=== PATIENT | female | born 1975 | race Caucasian/White ===

== ENCOUNTER 2018-03-23 19:16 | Emergency (ER) | payer MEDICAID ==
[~2018-03-23] VITALS: Ht 160 cm; Wt 55.0 kg
[2018-03-23 19:31] VITALS: BP 93/74
[2018-03-23] MEDS ORDERED: DIAZEPAM 5 MG TABLET ONE (20:17)
[2018-03-23] MEDS ORDERED: IBUPROFEN 200 MG TABLET ONE (20:17)
[2018-03-23] MEDS ORDERED: IBUPROFEN 200 MG TABLET PO ONE (20:30)
[2018-03-23] MEDS ORDERED: DIAZEPAM 5 MG TABLET PO ONE (20:30)
--- NOTE | 2018-03-23 21:45 | NUR ---
Patient/Caregiver given discharge instructions and they have confirmed that they understand the instructions. Patient ambulatory with steady gait.
== END 2018-03-23 21:45 | disposition home or self-care (01) ==
LOC: ED 21:10
DX: S16.1XXA Strain of muscle, fascia and tendon at neck level, initial encounter (principal); S39.012A Strain of muscle, fascia and tendon of lower back, initial encounter; J45.909 Unspecified asthma, uncomplicated; W01.0XXA Fall on same level from slipping, tripping and stumbling without subsequent striking against object, initial encounter; Y93.89 Activity, other specified; Y92.89 Other specified places as the place of occurrence of the external cause; Y99.8 Other external cause status
CPT/HCPCS: 72050; 72072; 72110; 99283

== ENCOUNTER 2018-04-04 09:36 | Emergency (ER) | payer MEDICAID ==
[~2018-04-04] VITALS: Ht 160 cm; Wt 48.7 kg
[2018-04-04 09:47] VITALS: BP 119/83
[2018-04-04 10:09] LABS: BASOPHILS # (AUTO) 0.03 x10^3/uL (0-0.1); BASOPHILS % (AUTO) 1 % (0-1); EOSINOPHILS # (AUTO) 0.08 x10^3/uL (0-0.4); EOSINOPHILS % (AUTO) 1 % (1-7); LYMPHOCYTES # (AUTO) 1.74 x10^3/uL (1-3.4); LYMPHOCYTES % (AUTO) 31 % (22-44); MD NO; MEAN CORPUSCULAR HEMOGLOBIN 30.9 pg (27.0-34.8); MEAN CORPUSCULAR HGB CONC 34.4 g/dL (32.4-35.8); MEAN CORPUSCULAR VOLUME 89.7 fL (80-100); MEAN PLATELET VOLUME 7.9 fL (7.4-10.4); MONOCYTES # (AUTO) 0.37 x10^3/uL (0.2-0.8); MONOCYTES % (AUTO) 7 % (2-9); NEUTROPHILS # (AUTO) 3.44 x10^3/uL (1.8-6.8); NEUTROPHILS % (AUTO) 61 % (42-75); PLATELET COUNT 293 x10^3/uL (130-400); RED BLOOD COUNT 5.04 x10^6/uL (3.82-5.3); RED CELL DISTRIBUTION WIDTH 13.9 % (9.6-15.2)
[2018-04-04 10:21] LABS: ALBUMIN 4.1 g/dL (3.4-5.0); ANION GAP 5 mmol/L (5-15); CALCIUM 9.5 mg/dL (8.5-10.1); CHLORIDE 109 mmol/L (98-107); CREATININE 0.93 mg/dL (0.55-1.02); SALICYLATE LEVEL 5.3 mg/dL (2.8-20.0)
[2018-04-04 10:26] LABS: ACETAMINOPHEN < 2 mcg/mL (10-30)
--- NOTE | 2018-04-04 10:29 | NUR ---
SITTER MONITORING FOR SAFETY
--- NOTE | 2018-04-04 10:56 | NUR ---
PT LOW RISK FOR SUICIDE, DISCUSSED WITH DR BOGGS, CHARGE AND TAX CREDIT LEASING CONSULTANT. MOTHER AND SITTER AT BEDSIDE WITH PT AT THIS TIME
[2018-04-04 11:01] LABS: AMPHETAMINE SCREEN, URINE Negative (Negative); BARBITURATE SCREEN, URINE Negative (Negative); BENZODIAZEPINE SCREEN, URINE Positive (Negative); CANNABINOID SCREEN, URINE Negative (Negative); COCAINE SCREEN, URINE Negative (Negative); METHADONE SCREEN, URINE Negative (Negative); OPIATE SCREEN, URINE Positive (Negative)
[2018-04-04 13:02] LABS: MICROSCOPIC INDICATED
[2018-04-04 13:03] LABS: CULTURE INDICATED? YES
--- NOTE | 2018-04-04 13:43 | NUR ---
DR BOGGS TO BEDSIDE, PT REFUSING ADMISSION [facility]OH[facility] THIS TIME. PT VERBALIZES UNDERSTANDING OF POC.
== END 2018-04-04 14:27 | disposition home or self-care (01) ==
LOC: ED 11:16 → EDIP 12:34 → UNDOADMIN 12:34
DX: R55 Syncope and collapse (principal); M54.9 Dorsalgia, unspecified; G89.29 Other chronic pain; F32.9 Major depressive disorder, single episode, unspecified; R51 Headache; Z91.81 History of falling; F17.200 Nicotine dependence, unspecified, uncomplicated
CPT/HCPCS: 36415; 70450; 80048; 80307; 80329; 81001; 82040; 82550; 84703; 85025; 87086; 93005; 99284; G0480